=== PATIENT | female | born 1975 | race Caucasian/White ===

== ENCOUNTER 2021-11-16 18:12 | Emergency (ER) | payer BC, SELFPAY ==
--- NOTE | 2021-11-16 18:22 | ED.URI ---
HPI - URI/Sore Throat General Chief Complaint: Upper Respiratory Infection Stated Complaint: Sinus Time Seen by Provider: 11/16/21 18:23 Source: patient, family, RN notes reviewed and old records reviewed Mode of arrival: ambulatory Limitations: no limitations History of Present Illness HPI Narrative: 46-year-old female presents to the [facility] with complaints of nasal congestion and a runny nose. Patient stated that symptoms started last week. [place] fine over the weekend but this morning her nose will not stop running. Has used a box of tissues. Has been using her Flonase and taking Claritin. No other treatment prior to arrival. Denies any fevers, ear pain, throat pain, cough. No abdominal pain nausea vomiting or diarrhea. MD elicited complaint: rhinorrhea Related Data Home Medications Medication Instructions Recorded Confirmed cholecalciferol (vitamin D3) 1,250 50,000 unit PO WEEKLY 07/31/19 11/16/21 mcg (50,000 unit) capsule fluticasone propionate 50 See Rx Instructions .ROUTE .COMPLEX 07/31/19 11/16/21 mcg/actuation nasal spray,suspension loratadine 10 mg tablet 10 mg PO DAILY 07/31/19 11/16/21 naltrexone-bupropion [Contrave] 1 tablet PO DAILY 11/16/21 11/16/21 sennosides-docusate sodium 1 tablet PO DIRECTED 11/16/21 11/16/21 [Senexon-S] solifenacin 5 mg PO DAILY 11/16/21 11/16/21 Allergies Allergy/AdvReac Type Severity Reaction Status Date / Time No Known Allergies Allergy Unverified 10/31/19 13:21 Review of Systems Review of Systems: All systems reviewed & are unremarkable except as noted in HPI and below Constitutional: Constitutional: Reports no additional constitutional complaints, Denies chills, Denies fever(s) and Denies headache(s) Eyes: Eyes: Reports no additional eye complaints ENT: Reports as per HPI, Denies vertigo, Denies dizziness, Denies facial pain, Denies headache(s), Reports nasal congestion, Reports nasal discharge (Clear), Denies neck pain, Denies nose pain, Reports post nasal drip and Denies sore throat Cardiovascular: Cardiovascular: Reports no additional cardiovascular complaints, Denies chest pain, Denies syncope, Denies rapid heart rate and Denies dyspnea Respiratory: Respiratory: Reports no additional respiratory complaints, Denies cough, Denies dyspnea and Denies wheezing Gastrointestinal: Gastrointestinal: Reports no additional gastrointestinal complaints, Denies abdominal pain, Denies diarrhea, Denies nausea and Denies vomiting Musculoskeletal: Musculoskeletal: Reports no additional musculoskeletal complaints and Denies numbness Integumentary/Breasts: Skin/Breast: Reports system reviewed and no additional complaints, except as docu Neurologic: Reports system reviewed and no additional complaints, except as documented, Denies vertigo, Denies dizziness, Denies syncope, Denies headache(s), Denies focal weakness and Denies numbness Psychiatric: Psychiatric: Reports no additional psychiatric complaints Allergic/Immunologic: Allergic/Immunologic: Reports no additional allergic/immunologic complaints and Denies wheezing PMFSH Past Medical History Medical History (Updated 11/17/21 @ 14:22 by Martha Wills APRN) Hypertension Screening cholesterol level Seasonal allergic rhinitis Family History Family History Mother Diabetes mellitus Father Hypertension Cerebrovascular accident Other Family history of arthritis Social History Social History Smoking status: Never smoker Alcohol intake: current Comments At the time of my signature, I reviewed and agree with the nursing past medical, surgical, social, and family history. There is no relevant family history pertinent to the patient complaint. Exam Const: General: cooperative, healthy appearing, no acute distress, well developed and alert Nutritional Appearance: well nourished Orientation/con
[2021-11-16 18:24] VITALS: BP 131/63; PULSE 54; RESP 16; TEMP 37.2; O2SAT 100
== END 2021-11-16 18:40 | disposition home or self-care (01) ==
PROVIDERS: Emergency Provider Nurse Practitioner
DX: J30.9 Allergic rhinitis, unspecified (principal); I10 Essential (primary) hypertension
CPT/HCPCS: 99213; G0463

== ENCOUNTER 2022-10-05 08:25 | Outpatient (CLI) | payer BC, SELFPAY ==
--- NOTE | ~2022-10-05 | MM_ITS ---
EXAMINATION: MM screening tramaine BI w serg HISTORY: Screening TECHNIQUE: Craniocaudal and mediolateral oblique 3-D tomosynthesis images were obtained and synthetic 2-D images were generated. CAD analysis was submitted and interpreted. COMPARISON: Comparison to multiple prior studies sequentially, with oldest reviewed study dated 06/22. BREAST PARENCHYMAL COMPOSITION: The breasts are almost entirely fatty. FINDINGS: There is no evidence of suspicious mass, calcification, or architectural distortion to sugg est malignancy in either breast. There has been no suspicious interval change. IMPRESSION: 1. No mammographic evidence of malignancy. 2. Recommend routine screening mammography in one year. BI-RADS Category 1: Negative Reviewed, dictated and finalized at location A. [employer]ER
== END 2022-10-05 08:26 | disposition home or self-care (01) ==
PROVIDERS: Visit Provider Nurse Practitioner
DX: Z12.31 Encounter for screening mammogram for malignant neoplasm of breast (principal)
CPT/HCPCS: 77063; 77067

== ENCOUNTER 2023-01-29 15:50 | Emergency (ER) | payer BC, SELFPAY ==
--- NOTE | ~2023-01-29 | XR_ITS ---
EXAMINATION: XR ribs RT 2V w CXR 2V INDICATION: Right-sided rib pain TECHNIQUE: Frontal and lateral views of the chest and 3 views of the right ribs were obtained. COMPARISON: 10/11/2008 FINDINGS: The lungs are free of acute opacities. No pleural effusion or pneumothorax. The cardiomedia stinal silhouette is normal. There is mild thoracic spondylosis. No displaced rib fracture is identif ied. Surgical clips in the right upper quadrant are likely from prior cholecystectomy. IMPRESSION: 1. No acute cardiopulmonary abnormality or evidence of displaced rib fracture. Reviewed, dictated and finalized at location F.
--- NOTE | 2023-01-29 15:51 | ED.URI ---
HPI - URI/Sore Throat General Chief Complaint: Unspecified Stated Complaint: Right Side Flank Pain/Cough Time Seen by Provider: 01/29/23 15:50 Source: patient Mode of arrival: ambulatory Limitations: no limitations History of Present Illness HPI Narrative: Zayda is a 47-year-old female patient presenting to the clinic today with complaints of right-sided rib pain and a cough. She reports approximately 1 month ago she was treated for bronchitis/pneumonia at her doctor's office. States her symptoms improved however she has a lingering cough and now she is having some right-sided lateral posterior rib pain. States the pain is worse with coughing and deep breathing. Denies any shortness of breath. Has been using an inhaler. MD elicited complaint: sore throat and nasal congestion Related Data Home Medications Medication Instructions Recorded Confirmed cetirizine 10 mg tablet 10 mg PO DAILY 01/29/23 01/29/23 ergocalciferol (vitamin D2) 1,250 1,250 mcg PO DAILY 01/29/23 01/29/23 mcg (50,000 unit) capsule hydroxyzine HCl 25 mg tablet 25 mg PO DIRECTED 01/29/23 01/29/23 lisinopril 20 1 tablet PO DAILY 01/29/23 01/29/23 mg-hydrochlorothiazide 12.5 mg tablet norethindrone 1 mg-ethinyl 1 tablet PO DAILY 01/29/23 01/29/23 estradiol 10 mcg (24)-iron 10 mcg(2) tablet (Lo Loestrin Fe) sennosides 8.6 mg-docusate sodium 1 tablet PO DIRECTED 01/29/23 01/29/23 50 mg tablet (Senexon-S) Allergies Allergy/AdvReac Type Severity Reaction Status Date / Time No Known Allergies Allergy Verified 01/29/23 15:55 Review of Systems Review of Systems: Pertinent positives per HPI. Patient denies any fever, chills, rash, headache, visual changes, dizziness, shortness of breath, chest pain, palpitations, nausea, vomiting, diarrhea, constipation, abdominal pain, or any urinary issues. [facility] Past Medical History Medical History Hypertension Screening cholesterol level Seasonal allergic rhinitis Family History Family History Mother Diabetes mellitus Father Hypertension Cerebrovascular accident Other Family history of arthritis Social History Social History Smoking status: Never smoker Alcohol intake: current Comments At the time of my signature, I reviewed and agree with the nursing past medical, surgical, social, and family history. There is no relevant family history pertinent to the patient complaint. Exam Narrative: General: Well-developed, well nourished, in no apparent distress Head: Normocephalic, atraumatic Eyes: Pupils equally round and reactive to light bilaterally, EOM intact, sclera and conjunctive clear, no discharge, lids normal Ears: TMs intact and clear, ear canals clear, no drainage, grossly hearing normal. Nose: Nares patent, no discharge, no inflammation, no sinus tenderness. Mouth: Oral pharynx without lesions or masses, good dentition, MMM. Neck: Supple, trachea midline, no enlargement of anterior or posterior cervical nodes, no thyroid masses or goiter palpable. Chest: Even rise and fall of chest wall, no bruising or swelling noted, tenderness to palpation over the right posterior lateral 5/6/7 ribs Cardio: Regular rate and rhythm, s1 and s2 normal, no murmur appreciated. Resp: Faint expiratory wheeze heard in the right middle lobe posteriorly otherwise clear, no rhonchi, rales,or rubs Course Course Emergency Course: Portions of this record may have been created with voice recognition software. Level of Care: Express Care Visit Vital Signs Vital signs: Vital signs reviewed MDM - URI/Sore Throat MDM Narrative Medical decision making narrative: At the time of visit patient is resting comfortably on the exam table. Chest x-ray was negative for any sign of pneumonia. I suspect t
[2023-01-29 16:01] VITALS: BP 142/92; PULSE 63; RESP 20; TEMP 36.6; O2SAT 100
== END 2023-01-29 16:35 | disposition home or self-care (01) ==
PROVIDERS: Emergency Provider Nurse Practitioner Family; PCP Physician Assistant
DX: R07.81 Pleurodynia (principal); R07.89 Other chest pain; I10 Essential (primary) hypertension
CPT/HCPCS: 71046; 71100; 99213; G0463

== ENCOUNTER 2023-12-08 15:48 | Outpatient (CLI) | payer BC, SELFPAY ==
--- NOTE | ~2023-12-08 | MM_ITS ---
EXAMINATION: MM screening tramaine BI w serg HISTORY: Screening TECHNIQUE: Craniocaudal and mediolateral oblique 3-D tomosynthesis images were obtained and synthetic 2-D images were generated. CAD analysis was submitted and interpreted. COMPARISON: No prior mammogram is available for comparison at this institution. BREAST PARENCHYMAL COMPOSITION: Not Dense: Breast are almost entirely fatty. FINDINGS: There is no evidence of suspicious mass, calcification, or architectural distortion to sugg est malignancy in either breast. There has been no suspicious interval change. IMPRESSION: 1. No mammographic evidence of malignancy. 2. Recommend routine screening mammography in one year. BI-RADS Category 1: Negative Reviewed, dictated and finalized at location B.
== END 2023-12-08 15:49 ==
LOC: MICIMG 15:48
PROVIDERS: PCP Nurse Practitioner; Visit Provider Nurse Practitioner
DX: Z12.31 Encounter for screening mammogram for malignant neoplasm of breast (principal)
CPT/HCPCS: 77063; 77067